=== PATIENT | female | born 1935 | race Caucasian/White ===

== ENCOUNTER 2017-03-02 07:53 | Inpatient (IN) | payer OTHER, MEDICAID ==
[~2017-03-02] VITALS: Ht 147.3 cm; Wt 59.0 kg
[~2017-03-02 07:53] MED LIST: LIPITOR; LOTENSIN
[2017-03-02] MEDS ORDERED: METF500T4 PO (08:02)
[2017-03-02] MEDS ORDERED: SODIUM CHLORIDE 0.9% 500 ML IV ONE (14:12)
[2017-03-02 14:44] LABS: BASOPHILS % 0.2 % (0.0-2.0); EOSINOPHILS % 0.7 % (0.0-5.0); HEMATOCRIT. 40.7 % (36.0-48.0); HEMOGLOBIN. 14.1 g/dL (12.0-16.0); MEAN CORPUSCULAR HEMOGLOBIN 30.3 pg (28.0-32.0); MEAN CORPUSCULAR VOLUME 87.6 fL (81.0-99.0); MEAN PLATELET VOLUME 10.4 fl (7.4-10.4); MONOCYTES % 7.7 % (2.0-8.0); NEUTROPHILS % 58.4 % (40.0-76.0); PLATELET 153 x1000/uL (130-400); RED BLOOD CELL COUNT 4.65 mill/uL (4.2-5.4); RED CELL DISTRIBUTION WIDTH 12.5 % (11.6-14.6)
[2017-03-02 14:50] LABS: PARTIAL THROMBOPLASTIN TIME 25.3 sec (23.4-31.0); PROTHROMBIN TIME 10.5 sec (9.4-11.6)
[2017-03-02 14:59] LABS: CARBON DIOXIDE 27 mEq/L (21-32); CHLORIDE 107 mEq/L (98-107); CREATINE KINASE MB FRACTION 1.1 ng/mL (0.5-3.6); TROPONIN I < 0.02 ng/mL (0.00-0.04)
[2017-03-02 17:00] VITALS: BP 150/82
[2017-03-02 20:00] VITALS: BP 128/73
[2017-03-02 20:30] VITALS: BP 150/82
[2017-03-02] MEDS ORDERED: PNEUMOCOCCAL 23-VAL P-SAC VAC 0.5 ML IM ONE (20:45)
[2017-03-02] MEDS ORDERED: MECLIZINE 12.5MG TABLET PO PRN (23:00)
[2017-03-02] MEDS ORDERED: TEMAZEPAM 15MG CAPSULE PO PRN (23:00)
[2017-03-02] MEDS ORDERED: ACETAMINOPHEN 325MG TABLET PO PRN (23:00)
[2017-03-02] MEDS ORDERED: DEXTROSE 50% WATER 50ML SYRINGE IV PRN (23:00)
[2017-03-02] MEDS ORDERED: SITA100T11 PO (23:20)
[2017-03-02] MEDS ORDERED: METF-517 PO (23:20)
[2017-03-02] MEDS ORDERED: AMLO10TA4 PO (23:20)
[2017-03-03] VITALS: BP 117/69
[2017-03-03 04:00] VITALS: BP 114/61
[2017-03-03] MEDS: BLOOD SUGAR DIAGNOSTIC STRIP TEST SCH ×3 (06:42→16:56)
[2017-03-03] MEDS: INSULIN LISPRO 100 UNITS/ML SUBCUT SCH ×3 (06:50→17:34)
[2017-03-03] MEDS ORDERED: METFORMIN HCL 500MG SR TABLET 24HR PO SCH (07:15)
[2017-03-03 08:00] VITALS: BP 137/66
[2017-03-03] MEDS ORDERED: ENOXAPARIN 40MG/0.4ML SYR SUBCUT SCH (09:00)
[2017-03-03] MEDS ORDERED: AMLODIPINE 10MG TABLET PO SCH (09:00)
[2017-03-03] MEDS ORDERED: LINAGLIPTIN 5MG TABLET PO SCH (09:00)
[2017-03-03] MEDS ORDERED: MEDICATION NOT ON FORMULARY EA (Sitagliptin Phosphate (Januvia) 1 TAB) PO SCH (09:00)
[2017-03-03] MEDS ORDERED: ASPIRIN 81MG TABLET PO SCH (09:00)
[2017-03-03 12:00] VITALS: BP 127/73
[2017-03-03 15:44] VITALS: BP 122/76
== END 2017-03-03 18:14 | disposition home or self-care (01) | DRG 149 ==
LOC: ER 08:20 → ENRESERV 15:22 → 5WST 15:47 → EDBEDREQ 15:52
PROVIDERS: ADMIT Internal Medicine; ATTEND Internal Medicine
DX: R42 Dizziness and giddiness (principal); E11.9 Type 2 diabetes mellitus without complications; I10 Essential (primary) hypertension; K21.9 Gastro-esophageal reflux disease without esophagitis; E78.5 Hyperlipidemia, unspecified; E78.00 Pure hypercholesterolemia, unspecified; Z90.49 Acquired absence of other specified parts of digestive tract; Z88.0 Allergy status to penicillin; Z28.21 Immunization not carried out because of patient refusal
CPT/HCPCS: 36415; 70450; 71010; 80053; 82553; 82962; 83735; 83880; 84484; 85025; 85610; 85730; 90732; 93005; 93880; 96360; 99285; J1650; J1815; J7040